=== PATIENT | male | born 1985 | race Hispanic/Latino ===

== ENCOUNTER 2023-09-17 12:35 | Outpatient (CLI) | payer BC ==
[2023-09-17 14:14] LABS: #Basophils 0.1 10x3/uL (0.0-0.2); #Eosinphils 0.5 10x3/uL (0.0-0.5); #Monocytes 0.5 10x3/uL (0.0-1.1); #Neutrophils 4.9 10x3/uL (1.5-8.4); %Basophils 0.8 % (0.0-2.0); %Eosinophils 5.3 % (0.0-6.0); %Lymphocytes 37.8 % (18.0-47.0); %Neutrophils 50.9 % (40.0-75.0); Hematocrit 46.3 % (38.8-50.0); Hemoglobin 15.5 g/dL (13.5-17.5); Mean Corpuscular HGB CONC 33.5 g/dL (32.0-36.0); Mean Corpuscular Hemoglobin 29.1 pg (27.0-33.0); Mean Corpuscular Volume 86.9 fl (81.2-95.1); Mean Platelet Volume 9.2 fl (7.4-10.4); Platelet Count 354 10x3/uL (150-450); RBC Distribution Width 12.6 % (11.5-14.5); Red Blood Cell (RBC) Count 5.33 10x6/uL (4.32-5.72); White Blood Cell (WBC) Count 9.6 10x3/uL (3.5-10.5)
[2023-09-17 14:30] LABS: Anion Gap 15 mmol/L (10-20); BUN (Urea Nitrogen) 12 mg/dL (8.9-20.6); Calc. Creatinine Clearance 0 mL/min (70-130); Carbon Dioxide 26 mmol/L (22-29); Chloride 103 mmol/L (98-107); Estimated GFR 118; Glucose 82 mg/dL (70-105); Potassium 4.1 mmol/L (3.5-5.1); Sodium 140 mmol/L (136-145)
== END 2023-09-17 12:36 | disposition home or self-care (01) ==
LOC: LABBT 12:35
PROVIDERS: ATTEND Specialist
DX: Z01.812 Encounter for preprocedural laboratory examination (principal); L73.2 Hidradenitis suppurativa
CPT/HCPCS: 80048; 85025

== ENCOUNTER 2023-09-22 05:55 | Day surgery (SDC) | payer BC ==
[2023-09-17 13:06] VITALS: BMI 34.0
[2023-09-22] MEDS ORDERED: Ketorolac Tromethamine 30 MG/ML VIAL ONE (06:05)
[2023-09-22] MEDS ORDERED: Acetaminophen 500 MG TAB ONE (06:05)
[2023-09-22] MEDS ORDERED: Sodium Chloride 0.9% 100 ML ONE (06:06)
[2023-09-22] MEDS ORDERED: CEFAZOLIN 2 GM VIAL ONE (06:06)
[2023-09-22] MEDS ORDERED: Bupivacaine 0.25% HCL 30 ML VIAL ONE (07:12)
[2023-09-22] MEDS ORDERED: EPINEPHrine 1 MG/ML VIAL ONE (07:12)
[2023-09-22] MEDS ORDERED: PROPOFOL 40 ML ONE (07:17)
[2023-09-22] MEDS ORDERED: Lidocaine 2% PF 5 ML VIAL ONE (07:17)
[2023-09-22] MEDS ORDERED: Midazolam HCl 2 mg/2 ml Vial ONE (07:17)
[2023-09-22] MEDS ORDERED: Fentanyl 250 MCG/5 ML VIAL ONE (07:17)
[2023-09-22] MEDS ORDERED: Ondansetron PF 4 MG/2 ML Vial ONE ×2 (07:17→07:45)
[2023-09-22] MEDS ORDERED: Rocuronium Bromide 10 MG/ML (10ML VIAL) ONE (07:17)
[2023-09-22] MEDS ORDERED: Dexamethasone 4 mg/ml Vial ONE (07:17)
[2023-09-22] MEDS ORDERED: SUGAMMADEX SODIUM 200 MG/2 ML VIAL ONE (07:34)
[2023-09-22] MEDS ORDERED: Dexamethasone 20 MG/5 ML VIAL ONE (07:45)
[2023-09-22] MEDS ORDERED: PROPOFOL 200 MG/20 ML VIAL ONE (07:45)
[2023-09-22] MEDS ORDERED: Lidocaine 1% PF 5 ML VIAL ONE (07:45)
[2023-09-22] MEDS ORDERED: Methylene Blue 50 MG/10 ML AMPUL ONE (07:56)
[2023-09-22] MEDS ORDERED: Bacitracin Zinc Ointment 30 gm TUBE ONE (08:06)
== END 2023-09-22 11:00 | disposition home or self-care (01) ==
LOC: SDC 05:55 → EDSEX 12:30
PROVIDERS: ATTEND Specialist
PROC: 0JB80ZZ Excision of Abdomen Subcutaneous Tissue and Fascia, Open Approach (ICD-10-PCS; principal; 2023-09-22)
DX: L73.2 Hidradenitis suppurativa (principal)
CPT/HCPCS: 87070; 87077; 87186; 87205; 88305; J0171; J1100; J1885; J2001; J2250; J2405; J2704; J3010; J3490; Q9968; S0020